=== PATIENT | female | born 1950 | race Caucasian/White ===

== ENCOUNTER 2016-11-24 23:34 | Observation (INO) | payer OTHER, MEDICARE ==
[~2016-11-24] VITALS: Ht 165.1 cm; Wt 94.3 kg
--- NOTE | 2016-11-25 00:30 | NUR ---
SL NTG GIVEN PAIN 3/10 BEFORE NTG LUNGS CLEAR
--- NOTE | 2016-11-25 01:02 | ED CARDIAC/CP/PALPITATIONS ---
History of Present Illness General Chief Complaint: Chest Pain Stated Complaint: CP Source: patient Exam Limitations: no limitations Vital Signs & Intake/Output Vital Signs & Intake/Output Vital Signs Date Time Temp Pulse Resp B/P B/P Pulse O2 O2 Flow FiO2 Mean Ox Delivery Rate 11/25 0050 97.8 62 19 129/64 95 Room Air 11/25 0001 97.9 83 22 150/78 98 Room Air Allergies Coded Allergies: codeine (RASH 11/25/16) Reconcile Medications Amlodipine Bes/Olmesartan Med (Sophia 5-40 MG Tablet) 5 MG-40 MG TABLET 1 TAB PO DAILY HTN (Reported) Triage Nurses Notes Reviewed? yes Onset: Gradual Duration: hour(s): Timing: recent history Quality/Severity: moderate Location: central Radiation: jaw, LEFT ARM Activities at Onset: none Prior Chest Pain/Card Workup: no prior chest pain Aspirin Today: no aspirin today Associated Symptoms: CHEST PRESSURE HPI: 66 yo woman h/o of hypertension, presents with central chest pressure for the past 2 hours. She shares that she was in her usual state of health. She felt sudden onset 10/ 10 sub sternal chest pressure that radiated to her left jaw and down her left arm. She notes that she continues to have the chest pressure, approximately 5/ 10. No shortness of breath, dyspnea, diaphoresis. She is otherwise well. Past History Medical History Any Pertinent Medical History? see below for history Cardiovascular: hypertension Surgical History Surgical History: none Family History Hx Contributory? No Review of Systems Review of Systems Constitutional: Reports: no symptoms. EENTM: Reports: no symptoms. Respiratory: Reports: no symptoms. Cardiovascular: Reports: no symptoms. GI: Reports: no symptoms. Genitourinary: Reports: no symptoms. Musculoskeletal: Reports: no symptoms. Skin: Reports: no symptoms. Neurological/Psychological: Reports: no symptoms. Hematologic/Endocrine: Reports: no symptoms. Immunologic/Allergic: Reports: no symptoms. All Other Systems: Reviewed and Negative Physical Exam Physical Exam General Appearance: well developed/nourished, mild distress Head: atraumatic, normal appearance Eyes: Bilateral: normal appearance. Ears, Nose, Throat: normal pharynx Neck: normal inspection Respiratory: normal breath sounds, chest non-tender, no respiratory distress, quiet respiration, lungs clear Cardiovascular: regular rate/rhythm Gastrointestinal: normal bowel sounds, soft, non-tender Back: normal inspection Extremities: normal inspection, normal capillary refill, normal range of motion, no edema Neurologic/Psych: no motor/sensory deficits, awake, alert, oriented x 3 Skin: intact, normal color, warm/dry Core Measures ACS in differential dx? Yes ASA ordered for poss ACS? Yes-ordered Severe Sepsis Present: No Septic Shock Present: No Progress Differential Diagnosis: AMI, costochondritis, pneumonia, unstable angina Plan of Care: Orders Procedure Date/time Status Place in observation 11/25 210 Active TROPONIN LEVEL 11/25 101 Active PARTIAL THROMBOPLASTIN TIME 11/25 101 Active PROTHROMBIN TIME 11/25 101 Active D-DIMER 11/25 101 Active COMPREHENSIVE METABOLIC PANEL 11/25 101 Active CBC WITHOUT DIFFERENTIAL 11/25 101 Active Diagnostic Imaging: Viewed by Me: Radiology Read. Discussed w/RAD: Radiology Read. CXR Impression: no acute abnormality, no infiltrates, normal size heart, normal mediastinum Initial ED EKG: normal axis, normal intervals, normal p-waves, normal QRS complex, normal sinus rhythm Comments: PATIENT: JANEY TELLEZ PRESENT AGE: 66 PATIENT ACCOUNT NO: [id number] : 51 LOCATION: [facility] ORDERING PHYSICIAN: ISAAC NANCE MD SERVICE DATE: 11/25/16 EXAM TYPE: RAD - XRY-PORTABLE CHEST XRAY EXAMINATION: XR PORTABLE CHEST CLINICAL INFORMATION: Chest pain COMPARISON: 09/13/2014 TECHNIQUE: Portable frontal view of the chest was obtained. FINDINGS: Cardiac leads overlie the chest. The lungs are well expanded. There is no focal consolidation, edema, or effusion. No pneumothorax. The cardiomediastinal silhouette is within normal limits. No acute osseous abnormality. IMPRESSION: Clear lungs. DICTATED BY: YANCY GUZMÁN MD DATE/TIME DICTATED:11/25/16143 PRACTICE ADVISOR:ELE DATE/TIME TRANSCRIBED:11/25/16143 CONFIDENTIAL, DO NOT COPY WITHOUT APPROPRIATE AUTHORIZATION. <Electronically signed in Other Vendor System> SIGNED BY: ARIELLE MARTI,YANCY 11/25 Departure Departure Disposition: STILL A PATIENT Condition: Stable Clinical Impression Primary Impression: Chest pain Departure Forms: Customer Survey General Discharge Information Comments ekg ordered manually during down-time. Observation Note Spoke With: Yony MCCLELLAN MD Physician Advisor Notified: EDGARDO SEXTON DO Place Patient In: Non-ED OBS Care Area Rationale for Observation: My rational for observation is as follows . pt with nitro responsive chest pain.... normal ekg, negative trop, cxr benign... pt merits rule out, tele monitoring for dysrhythmia, cards eval in am. Critical Care Note Critical Care Note Critical Care Time: 30-74 min
--- NOTE | 2016-11-25 01:05 | NUR ---
PER PT CO CHEST AND BACK PAIN X 2 HRS WHILE AT A CONCERT AT WORST 10 BUT AT PRESENT 5/0 NO SOB NO DIAPHORESIS NO BELCHING OR NAUSEA
[2016-11-25] MEDS ORDERED: AZOR 5-40 MG T1 EACH PO (01:08)
--- NOTE | 2016-11-25 01:48 | RADIOLOGY REPORT ---
EXAMINATION: XR PORTABLE CHEST CLINICAL INFORMATION: Chest pain COMPARISON: 09/13/2014 TECHNIQUE: Portable frontal view of the chest was obtained. FINDINGS: Cardiac leads overlie the chest. The lungs are well expanded. There is no focal consolidation, edema, or effusion. No pneumothorax. The cardiomediastinal silhouette is within normal limits. No acute osseous abnormality. IMPRESSION: Clear lungs.
[2016-11-25 02:17] LABS: ABSOLUTE BASOPHIL COUNT 0 /CUMM (0.0-0.2); ABSOLUTE EOSINOPHIL COUNT 0.2 /CUMM (0.0-0.7); ABSOLUTE GRANULOCYTE CT 4.4 /CUMM (1.4-6.5); ABSOLUTE LYMPH COUNT 2.8 /CUMM (1.2-3.4); ABSOLUTE MONOCYTE COUNT 0.7 /CUMM (0.10-0.60); BASOPHIL % 0.6 % (0.0-2.0); EOSINOPHIL % 2.1 % (0-5); GRANULOCYTE % 54.2 % (42.2-75.2); HEMATOCRIT 39.5 % (37-47); MEAN CORPUSCULAR HGB 29.7 PG (27.0-31.0); MEAN CORPUSCULAR HGB CONC 32.8 G/DL (33.0-37.0); MEAN CORPUSCULAR VOLUME 90.5 FL (81.0-99.0); MEAN PLATELET VOLUME 8.1 FL (7.4-10.4); PLATELET COUNT 287 /CUMM (130-400); RBC DISTRIBUTION WIDTH 13.2 % (11.5-14.5); RED BLOOD CELL CT 4.36 /CUMM (4.20-5.40); WHITE BLOOD CELL COUNT 8.2 /CUMM (4.8-10.8)
[2016-11-25 02:18] LABS: PT 11.4 SEC (9.4-12.5)
[2016-11-25 02:44] LABS: PTT 31 SEC (25-37)
--- NOTE | 2016-11-25 02:51 | History & Physical ---
CRISTOBALELIZABETH Alexander 11/25/16 0251: General Information and HPI MD Statement: I have seen and personally examined JANEY TELLEZ and documented this H&P. The patient is a 66 year old F who presented with a patient stated chief complaint of [chest pain]. Source of Information: patient Exam Limitations: no limitations History of Present Illness: This Is a 66-year-old relatively healthy female with past medical history of hypertension,depression nonsmoker, occasional alcohol, no illicit drug use came in with chief complain of twitching and pressure kind of chest pain since 2 weeks prior to presentation. apparently the patient was doing fine until 2 weeks prior to admission when she said that she started to experience a horrible kind of pain which was waxing and waning, it was a pressure kind of pain however it was just lasts for a few minutes and go away however on the day of admission around 9 PM, she had the severe kind of pain which was now 10 out of 10, she had difficulty to breathe and felt like there was tightness around her chest, this was a pressure kind of pain, she says that it lasted for a minute or so however it would recur again in 8-10 minutes with the same worse frequency , the pain also radiating to the neck and the jaw line and therefore she came into the ER. She also notes that she has been having some dizziness and lightheadedness since 2 weeks prior to admission. She also felt like her heart was racing and her whole body was "feeling vibration second to the racing heart". She says that she has never had similar pain before. She is not a smoker, occasional alcohol, no illicit drug abuse. Family history is positive for coronary artery disease in his brother when he was in his 40s, his other brother had a TIA/stroke when he was in his 50s, father is a diabetic, and significant history of breast cancer, brain cancer and neck cancer in aunts. She denied any worsening shortness of breath, shortness of breath on exertion, paroxysmal nocturnal dyspnea, nausea, vomiting, diarrhea Allergies/Medications Allergies: Coded Allergies: codeine (RASH 11/25/16) Compliance With Home Meds: GOOD Past History Travel History Traveled to [place] past 21 day No Medical History EENT: NONE Cardiovascular: hypertension Respiratory: NONE Gastrointestinal: NONE Hepatic: NONE Renal: NONE Musculoskeletal: NONE Psychiatric: NONE Endocrine: NONE Surgical History Surgical History: none Past Family/Social History Psychosocial History Where do you live? Home Who Do You Live With? boyfriend Primary Language: Yoruba Smoking Status: Never Smoked ETOH Use: occasional use Illicit Drug Use: denies illicit drug use Functional Ability ADLs Independent: dressing, eating, toileting, bathing. Ambulation: independent IADLs Independent: shopping, housework, finances, food prep, telephone, transportation , medication admin. Review of Systems Review of Systems Constitutional: Reports: malaise, weakness. Denies: chills, diaphoresis, fever. EENTM: Denies: blurred vision, double vision, visual changes, eye pain. Cardiovascular: Reports: chest pain, palpitations. Denies: edema, orthopena, peripheral edema, syncope. Respiratory: Denies: cough, hemoptysis, orthopnea, short of breath, sputum production. GI: Denies: abdominal pain, bloating, constipation, diarrhea, distention. Genitourinary: Denies: discharge, dysuria, frequency, hematuria. Musculoskeletal: Denies: back pain, gout, joint pain, joint swelling. Skin: Reports: no symptoms. Neurological/Psychological: Reports: no symptoms. Hematologic/Endocrine: Reports: no symptoms. Immunologic/Allergic: Reports: no symptoms. All Other Systems: Reviewed and Negative Exam & Diagnostic Data Last 24 Hrs of Vital Signs/I&O Vital Signs Date Time Temp Pulse Resp B/P B/P Pulse O2 O2 Flow FiO2 Mean Ox Delivery Rate 11/25 0804 98.1 58 16 110/56 95 Room Air 11/25 0505 98.0 58 18 142/62 96 Room Air 11/25 0434 97.4 60 17 120/60 98 Room Air 11/25 0050 97.8 62 19 129/64 95 Room Air 11/25 0001 97.9 83 22 150/78 98 Room Air Intake & Output 11/25 1600 11/25 0800 11/25 0000 Intake Total Output Total Balance Patient 94.347 kg Weight Weight Standing Scale Measurement Method Physical Exam General Appearance Alert, Oriented X3, Cooperative, No Acute Distress Skin No Rashes, No Breakdown Skin Temp/Moisture Exam: Warm/Dry Sepsis Skin Exam (color): Normal for Ethnicity HEENT Atraumatic, PERRLA, EOMI Neck Supple, No JVD, No thryomegaly Cardiovascular Normal S1, Normal S2, No Murmurs Lungs Clear to Auscultation, Normal Air Movement Abdomen Normal Bowel Sounds, Soft, No Tenderness Extremities No Clubbing, No Cyanosis, No Edema, Normal Pulses Vascular Normal Pulses Last 24 Hrs of Labs/Car: Laboratory Tests 11/25/16 0426: Troponin I < 0.01 11/25/16 0351: Troponin I Cancelled 11/25/16 0015: Anion Gap 11, Estimated GFR > 60, BUN/Creatinine Ratio 21.4, Glucose 96, Calcium 9.5, Magnesium 2.3, Total Bilirubin 0.3, AST 24, ALT 38, Alkaline Phosphatase 122, Troponin I < 0.01, Total Protein 6.8, Albumin 4.1, Globulin 2.7, Albumin/ Globulin Ratio 1.5, PT 11.4, INR 1.09, APTT 31, D-Dimer 545 H, CBC w Diff NO MAN DIFF REQ, RBC 4.36, MCV 90.5, MCH 29.7, RDW 13.2, MPV 8.1, Gran % 54.2, Lymphocytes % 34.6, Monocytes % 8.5, Eosinophils % 2.1, Basophils % 0.6, Absolute Granulocytes 4.4, Absolute Lymphocytes 2.8, Absolute Monocytes 0.7 H, Absolute Eosinophils 0.2, Absolute Basophils 0, PUBS MCHC 32.8 L Diagnostic Data EKG Results see a/p CXR Results see a/p Assessment/Plan Assessment: This is a 66-year-old relatively healthy female with past medical history of hypertension, depression, nonsmoker, occasional alcohol, no illicit drug use in with chief complaint of twitching and pressure kind of substernal chest pain since 2 weeks prior to presentation which continued to worsen on the day of admission few hours prior to presentation, she described it as 10 out of 10 pressure kind of chest pain which was radiating to the neck and the jaw line, slightly improved after receiving nitroglycerin along with lightheadedness and dizziness for 2 weeks prior to admission and feeling of racing of heart for last few days came into [place] ER for further evaluation. on presentation she was afebrile with a temperature of 97.9, pulse of 83, respiration of 22, blood pressure 150/78, she was 98% saturating on room air. Chest x-ray showed clear lungs. CBC, electrolytes, liver function test the normal limit. Troponin first and second set were negative, third set of troponin and EKG at 10 AM. Initial EKG showed normal sinus rhythm with first-degree heart block SC of 200, QTC of 454, very mild T-wave elevations in V4 ( <1mm) which were present on the previous EKG, no new changes. Observe the patient on cardiac telemetry floor for 24 hours secondary to chest pain without acute coronary syndrome. Continue to monitor vitals every shift. Continue to monitor intake and output. Continue to trend EKG and troponins and rule out acute coronary syndrome. Initial set of troponin was negative. Dr. Mcclellan to see the patient in a.m. NG prn necessary for chest pain. Consider echocardiogram in the a.m. #2 history of hypertension. Hold antihypertensive medications for now. However we'll continue on olmesartan 40 mg daily from tomorrow in a.m. Patient takes a combination of amlodipine 5 mg and olmesartan 40 mg. If hypertensive also consider starting the amlodipine 5 mg separately. #3 history of depression. Currently stable Ct sertraline 50 mg daily. Patient is full code. Mild/moderate and severe pain pathway with IV Tylenol and IV morphine. DVT prophylaxis with Lovenox. Regular diet. As Ranked By This Provider Problem List: 1. Chest pain 2. Hypertension 3. Depression Core Measures/Miscellaneous Acute Coronary Syndrome ACS Diagnosis: No Cerebrovascular Accident CVA/TIA Diagnosis: No Congestive Heart Failure CHF Diagnosis: No Venous Thromboembolism VTE Risk Factors: Age > 40 No [facility] VTE prophylaxis d/t: No contraindications No VTE Pharm Prophylaxis d/t: No contraindications VTE Diagnosis: No VTE Type: NONE VTE Confirmed by (Test): NONE Severe Sepsis Severe Sepsis Present: No Septic Shock Septic Shock Present: No Miscellaneous Documentation Attending Case Discussed With: Yony MCCLELLAN MD Primary Care Physician: UNKNOWN Patient sees these Specialists .. Level of Patient Care: Telemetry Resident Review Statement Resident Statement: admitted by resident ISABEL MCCLELLAN MD 11/25/16 1328: General Information and HPI Allergies/Medications Home Med list Amlodipine Bes/Olmesartan Med (Sophia 5-40 MG Tablet) 5 MG-40 MG TABLET 1 TAB PO DAILY HTN (Reported) Aspirin (Ecotrin*) 81 MG TABLET.DR 1 TAB PO DAILY HEART Metoprolol Succinate 25 MG TAB 0.5 TAB PO BID HTN Nitroglycerin 0.4 MG TAB.SUBL 1 TAB SL AD PRN CHEST PAIN 1st sign of attack; may repeat every 5 minutes until relief; if pain persists after 3 tablets in 15 minutes, prompt medical att. Sertraline HCl 50 MG TABLET 1 TAB PO DAILY depression (Reported) Attending MD Review Statement Attending Statement Attending MD Statement: examined this patient, discuss w/resident/PA/SENIOR ORACLE DATABASE ADMINISTRATOR, agreed w/resident/PA/SENIOR ORACLE DATABASE ADMINISTRATOR, discussed with family, reviewed EMR data (avail), discussed with nursing, discussed with case mgmt, reviewed images, amended to note Attending Assessment/Plan: Attending addendum: The patient is a 66-year-old white female. The patient was seen and examined by me. The case was discussed with the patient and house staff. I agree with the plan as outlined above. The patient is a 66-year-old female with a history of hypertension on amlodipine. She also has a family history of coronary artery disease. No other cardiac risk factors noted. Over the last few weeks, the patient has noted intermittent, random, nonexertional episodes of sharp chest discomfort which shoot through to her right back. Yesterday, while the music vessel or a campground, the patient noted onset of a similar but more pressure-like discomfort. The symptoms waxed and waned. Ultimately, the patient drove home and subsequently ended up in the [place] emergency room. In the emergency room, her initial troponin and ECG were normal. However, the symptoms did xavi with one sublingual nitroglycerin. Since that time, the patient has been stable. She did have a very brief episode of similar symptoms as morning which lasted less than 1 minute. The patient's serial ECGs and serial troponins are normal. Recommendations: -I had an extended discussion with the patient about her current situation. -The patient's symptoms, are somewhat atypical but not completely so. However, she absolutely denies any exertional symptoms whatsoever. Nevertheless, the symptoms were relieved by one sublingual ectopy as her in the emergency room. -In spite of this fact, the patient has remains essentially asymptomatic since then and her ECGs, troponins, are unremarkable. -The patient's echocardiogram is also normal with normal left ventricular function and no cigarette and valvular disease. -I discussed the situation in detail with the patient. At the present time, I believe it is safe for her to be discharged. -The patient will continue on amlodipine. She will also have metoprolol 12.5 mg twice a day added to her regimen as well as aspirin 81 mg daily. -A fasting lipid profile will be checked -A perception for sublingual nitroglycerin was also given to the patient. -The patient will call me with any changes. -Otherwise, the patient will call me on Saturday we will arrange a pharmacologic nuclear stress test as an outpatient -If there is any acceleration of progression of her symptoms in the interim, consideration will be made for elective cardiac catheterization.
--- NOTE | 2016-11-25 03:06 | NUR ---
TO BE ADMITTED
--- NOTE | 2016-11-25 03:26 | NUR ---
NO CP AT PRESENT UP TO BR TO VOID MONITOR SINUS,
--- NOTE | 2016-11-25 03:43 | NUR ---
AWAITS HOUSESTAFF EVAL.
--- NOTE | 2016-11-25 03:59 | NUR ---
HOUSESTAFF IN WITH PT
--- NOTE | 2016-11-25 04:06 | NUR ---
REPORT TO HAL.
--- NOTE | 2016-11-25 04:09 | NUR ---
HOUSESTAFF REMAINS AT BEDSIDE.
--- NOTE | 2016-11-25 04:33 | NUR ---
PT REPEAT TROP AND EKG DONE THEN WILL TRANSPORT.
[2016-11-25 05:05] VITALS: BP 142/62
[2016-11-25 08:04] VITALS: BP 110/56
[2016-11-25] MEDS ORDERED: SERTRALINE HCL50 MG PO (08:48)
[2016-11-25 11:20] LABS: ABSOLUTE BASOPHIL COUNT 0 /CUMM (0.0-0.2); ABSOLUTE EOSINOPHIL COUNT 0.2 /CUMM (0.0-0.7); ABSOLUTE GRANULOCYTE CT 1.9 /CUMM (1.4-6.5); ABSOLUTE LYMPH COUNT 1.7 /CUMM (1.2-3.4); ABSOLUTE MONOCYTE COUNT 0.5 /CUMM (0.10-0.60); BASOPHIL % 0.7 % (0.0-2.0); EOSINOPHIL % 4.2 % (0-5); GRANULOCYTE % 44.5 % (42.2-75.2); HEMATOCRIT 37.4 % (37-47); MEAN CORPUSCULAR HGB 29.9 PG (27.0-31.0); MEAN CORPUSCULAR VOLUME 90.6 FL (81.0-99.0); MEAN PLATELET VOLUME 8.4 FL (7.4-10.4); PLATELET COUNT 255 /CUMM (130-400); RBC DISTRIBUTION WIDTH 13.1 % (11.5-14.5); RED BLOOD CELL CT 4.13 /CUMM (4.20-5.40); WHITE BLOOD CELL COUNT 4.3 /CUMM (4.8-10.8)
[2016-11-25 12:00] VITALS: BP 118/78
[2016-11-25] MEDS ORDERED: METOPROLOL SUCC25 M1 PO (12:07)
[2016-11-25] MEDS ORDERED: ASPIRIN EC81 M1 PO (12:11)
--- NOTE | 2016-11-25 12:11 | Patient Discharge Instructions ---
Discharge Instructions General Discharge Information You were seen/treated for: Chest pain Special Instructions: Please set up an appointment with your windlace machine operator Dr. Hercules for the earliest date possible for a stress test. Follow up with primary care doctor within 1-2 weeks. Call MD or return to ED if your symptoms don't improve or get worse. Diet Continue normal diet: Yes Activity Full Activity/No Limits: Yes (as tolerated) Acute Coronary Syndrome Inclusion Criteria At DC or during hospital stay patient has or had the following: ACS DIAGNOSIS No Discharge Core Measures Meds if any: Prescribed or Continued at Discharge Meds if any: NOT Prescribed or Continued at Discharge Congestive Heart Failure Inclusion Criteria At DC or during hospital stay patient has or had the following: CHF DIAGNOSIS No Discharge Core Measures Meds if any: Prescribed or Continued at Discharge Meds if any: NOT Prescribed or Continued at Discharge Cerebrovascular accident Inclusion Criteria At DC or during hospital stay patient has or had the following: CVA/TIA Diagnosis No Discharge Core Measures Meds if any: Prescribed or Continued at Discharge Meds if any: NOT Prescribed or Continued at Discharge Venous thromboembolism Inclusion Criteria VTE Diagnosis No VTE Type NONE VTE Confirmed by (Test) NONE Discharge Core Measures - Per Current guidelines, there needs to be overlap - treatment for the first 5 days of Warfarin therapy. - If discharged on Warfarin prior to 5 days of - overlap therapy, the patient will need to be - assessed for post discharge needs including - *Post discharge parental anticoagulation - *Warfarin and/or parental anticoagulation education - *Follow up date to check INR post discharge At least 5 days overlap therapy as Inpatient No Meds if any: Prescribed or Continued at Discharge Note: Overlap Therapy is Warfarin and Anticoagulant Meds if any: NOT Prescribed or Continued at Discharge
[2016-11-25] MEDS ORDERED: NITROGLYCERIN0.4 M1 SL (12:13)
--- NOTE | 2016-11-25 15:16 | ECHOCARDIOGRAM REPORT ---
JANEY TELLEZ Age: 66 : 1950 Gender: F Exam Date: 11/25/2016 10:52 Exam Location: 1 [address] Ht (in): 65 Wt (lb): 208 BSA: 2.12 BP: 142 / 62 Ordering Physician: ELIZABETH HERNANDEZ MD Referring Physician: Kamryn Hercules MD Technologist: Marisela Mitchell NELL Room Number: 171 Indications: CHEST PAIN Rhythm: Sinus Technical Quality: Fair FINDINGS Left Ventricle Normal size left ventricle. No obvious regional wall motion abnormalities. Left ventricular wall thickness increased. Normal left ventricular ejection fraction estimated at 60-65%. Right Ventricle Right ventricle not well visualized, grossly normal. Right Atrium Normal right atrial size. Left Atrium Left atrial size at the upper limits of normal. Mitral Valve Mitral valve thickened. Trace to mild mitral regurgitation. Aortic Valve Trileaflet aortic valve. Focal thickening of the aortic valve cusps. No aortic stenosis. No aortic regurgitation. Tricuspid Valve Tricuspid valve not well visualized, grossly normal. Mild tricuspid regurgitation. Right ventricular systolic pressure estimated at 26 mmHg. Pulmonic Valve Pulmonic valve not well visualized, grossly normal. Pericardium Minimal pericardial effusion (normal variant). Great Vessels Normal size aortic root and proximal ascending aorta. CONCLUSIONS 1. Minimal aortic sclerosis is present with no valvular stenosis or insufficiency. 2. Mild thickening of themitral leaflets is present with minimal mitral insufficiency. 3. A very small posterior pericardial effusion is present which is hemodynamically insignificant. 4. The left ventricular chamber size is normal with borderline concentric hypertrophy and a normal ejection fraction with no resting wall motion abnormalities. 5. Mild tricuspid insufficiency is present with no evidence of pulmonary hypertension. 6. Dilatation of the coronary sinus is present which suggests the possibility of a left sided SVC. Kamryn Hercules M.D. (Electronically Signed) Final Date: 25 Nov 2016 15:15 MEASUREMENTS (Male / Female) Normal Values 2D ECHO LV Diastolic Diameter PLAX 3.8 cm 4.2 - 5.9 / 3.9 - 5.3 cm LV Systolic Diameter PLAX 2.4 cm 2.1 - 4.0 cm LV Fractional Shortening PLAX 36.8 % 25 - 46 % LV Ejection Fraction 2D Teich 67.5 % IVS Diastolic Thickness 1.3 cm LVPW Diastolic Thickness 1.3 cm LV Relative Wall Thickness 0.7 RV Internal Dim ED PLAX 2.9 cm 1.9 - 3.8 cm LVOT Diameter 2.1 cm Aortic Root Diameter 2.6 cm LA Systolic Diameter LX 2.7 cm 3.0 - 4.0 / 2.7 - 3.8 cm LA Volume 35.0 cm 18 - 58 / 22 - 52 cm Ascending Aorta Diameter 3.1 cm DOPPLER AV Peak Velocity 145.0 cm/s AV Peak Gradient 8.4 mmHg AV Mean Velocity 107.0 cm/s AV Mean Gradient 5.0 mmHg AV Velocity Time Integral 38.5 cm LVOT Peak Velocity 127.0 cm/s LVOT Peak Gradient 6.5 mmHg LVOT Mean Velocity 82.4 cm/s LVOT Mean Gradient 3.0 mmHg LVOT Velocity Time Integral 28.9 cm LVOT Stroke Volume 100.1 cm AV Area Cont Eq vti 2.6 cm AV Area Cont Eq pk 3.0 cm MV Peak Velocity 109.0 cm/s MV Peak Gradient 4.8 mmHg MV Mean Velocity 67.7 cm/s MV Mean Gradient 2.0 mmHg Mitral E Point Velocity 83.4 cm/s Mitral A Point Velocity 91.8 cm/s Mitral E to A Ratio 0.9 MV PHT Velocity 115.0 cm/s MV Deceleration Angelina 430.0 cm/s MV Pressure Half Time 80.2 ms MV Area PHT 2.7 cm MV Deceleration Time 304.0 ms TR Peak Velocity 240.0 cm/s TR Peak Gradient 23.0 mmHg Right Atrial Pressure 5.0 mmHg Pulmonary Artery Systolic Pressu 28.0 mmHg Right Ventricular Systolic Press 28.0 mmHg PV Peak Velocity 109.0 cm/s PV Peak Gradient 4.8 mmHg PV Mean Velocity 71.2 cm/s PV Mean Gradient 2.0 mmHg PV Velocity Time Integral 26.1 cm LV E' Lateral Velocity 10.0 cm/s Mitral E to LV E' Lateral Ratio 8.3 LV E' Septal Velocity 8.0 cm/s Mitral E to LV E' Septal Ratio 10.4
[2016-11-25 15:46] VITALS: BP 110/60
== END 2016-11-25 15:54 ==
LOC: ERH 23:34 → ERHI 11-25 02:35 → ENRESERV 11-25 03:54 → 1NO 11-25 04:51 → ENPENDDIS 11-25 15:09 → 1NO 11-25 15:54
PROVIDERS: Internal Medicine; Pediatrics; ADMIT Specialist
DX: R07.9 Chest pain, unspecified (principal); I10 Essential (primary) hypertension; F32.9 Major depressive disorder, single episode, unspecified
CPT/HCPCS: 6020; 82436; 93005; 93010; 93306; 96372; G0378; J1650; J2354; J3490